=== PATIENT | female | born 1995 | race African-American/Black ===

== ENCOUNTER 2018-07-09 21:32 | Emergency (ER) | payer OTHER ==
[~2018-07-09] VITALS: Ht 165.1 cm; Wt 65.6 kg
[2018-07-09 21:34] VITALS: BP 117/82
[2018-07-09] MEDS ORDERED: IBUPROFEN 200 MG TABLET ONE (21:45)
[2018-07-09] MEDS ORDERED: IBUPROFEN 200 MG TABLET PO ONE (22:00)
== END 2018-07-09 22:21 | disposition home or self-care (01) ==
LOC: ED 21:50
DX: M10.071 Idiopathic gout, right ankle and foot (principal)
CPT/HCPCS: 99283